=== PATIENT | male | born 1940 | race Caucasian/White ===

== ENCOUNTER → 2018-04-22 | Outpatient (CLI) | payer OTHER ==
[~2018-04-22] MED LIST: AMLO10TA8 PO; BENZ100C PO; BRIM5DRO3 EACHEYE; CARV25TA2 PO; CHLO15MO2 PO; ERGO500027 PO; FINA5TAB4 PO; GABA300C18 PO; GEMF600T8 PO; GLIP10TA13 PO; HYDR-2765 PO; LISI-130 PO; LORA1TAB PO; METF10007 PO; METO-247 PO; NYST15CR2 TP; OMEG1CAP6 PO; PENT1TAB PO; TRAZ-118 PO; VARD20TA2 PO; ZOLP10TA PO
--- NOTE | 2018-04-22 23:51 | PAIN ---
DATE OF SERVICE: 04/22/2018 INITIAL CONSULTATION FOR PAIN CLINIC CHIEF COMPLAINT: Low back pain. HISTORY OF PRESENT ILLNESS: The patient is a 77-year-old male who presents with history of pain for at least 15 years or greater by his report in the low back itself. The patient reports increases with walking, standing, change in positions, wakes him from sleep at night about 3 times a night on most nights, does not affect his bowel or bladder control, but does affect his ability to walk. He is using a brace on his right foot as well as he has some neuropathic pain by his report in the right ankle. The patient reports the pain in the back is intermittent in intensity but worse with walking, standing, change in position even sitting for prolonged periods with numbness and radiation into the lower extremities, mainly in the right foot, worse and has a stabbing pain as well in the back at times. The patient has been well controlled. He reports for over 10 years with pentazocine as well as hydrocodone and gabapentin. The patient reports that he has no significant side effects at this time with these medications, has done quite well with these over time and has been very stable on this regimen with about a 70% overall decrease in pain with the medications. The patient reports he has had previous epidural injections counseling does exercise and still does exercise and walking when he can. All of his interventional techniques have been limited in the past with the epidural injection as well as other procedures. He is not sure what was done exactly but has had multiple injections over the years in the low back. The patient rates his disability rate from 0-10, 10 being the worst, is a 6 with family and home responsibilities, 5 with recreation and social activity, 8 with sexual behavior, 2 with self-care and 3 with life support activities. PAST MEDICAL HISTORY: Significant for type 2 diabetes, cigarette smoking and arthritis. PAST SURGICAL HISTORY: Previous surgeries include cholecystectomy and hernia repair as a child and cataract extraction in 2003. CURRENT MEDICATIONS: Include pentazocine, lorazepam, Tessalon Perles, Ambien, Peridex, Alphagan, fish oil, Levitra, gabapentin, finasteride, nystatin, trazodone, hydrocodone, amlodipine, carvedilol, lisinopril, metformin, gemfibrozil, metoprolol, vitamin D and glipizide. ALLERGIES: The patient has no known drug allergies. FAMILY HISTORY: Significant for cancer in the patient's paternal grandmother and Alzheimer's disease in a brother. SOCIAL HISTORY: The patient does not drink alcohol, does smoke less than half a pack a day of cigarettes and has for many years. Does not use any illegal, illicit or recreational drugs. He is and lives with his spouse and lives locally in [place], [place]. The patient reports he is currently retired. REVIEW OF SYSTEMS: The patient's review of systems is positive for those items mentioned in history of present illness. All systems reviewed and otherwise negative. It is complete, full and well documented on the patient's chart. PHYSICAL EXAMINATION: VITAL SIGNS: Today, the patient's blood pressure is 139/70, pulse 81, respirations 18 and temperature is 98.5 degrees Fahrenheit. Height is 5 feet 11 inches and weight is 216 pounds. GENERAL: The patient is awake, alert, oriented, appropriate and very pleasant demeanor. HEENT: Head shows normocephalic and atraumatic. The patient wears eyeglasses. Extraocular movements intact and symmetrical. Oral cavity: Mucous membranes moist and pink. Dentition is intact. NECK: Shows anterior throat supple without palpable lymphadenopathy noted. Swallow reflex symmetrical. CHEST: Shows normal on inspection. Breath sounds are distant but clear to auscultation bilaterally. HEART: Shows S1 and S2 clear. No murmurs auscultated. ABDOMEN: Obese, soft, nontender and nondistended. No palpable organomegaly is noted. No rebound or guarding demonstrated. BACK: Shows spine grossly in the midline. Slight exaggeration of the thoracic kyphosis. Normal appearing cervical lordotic curvature and lumbar lordotic curvature. No previous surgical scars are noted. Lumbar paraspinous muscle shows symmetrical on inspection with palpation shows some moderate tenderness bilaterally in the upper, middle and lower distribution of the paraspinous muscles diffusely without radiation. The patient has good rotational motion of the lumbar spine, both laterally greater than 10 degrees right and left as well as extension greater than 10 degrees and forward flexion at 45 degrees without significant increase in pain reported. EXTREMITIES: The patient's lower extremities show deep tendon reflexes 1+ in the patellar and tendo-calcaneus tendons. Motor exam is strong with 5/5 dorsiflexion, extension and equal. Peripheral pulses are 1+ posterior tibial. The patient initially wearing a supportive but pivoting brace on his right ankle and lower leg. The patient is able to stand and walks with a slight shuffling gait, does appear to favor his right lower extremity to a moderate extend but is not using any assistive device such as canes or walkers to ambulate on this visit today. SKIN: Shows warm and dry, good turgor. No edema. No sores, rashes or bruising. IMPRESSION: 1. This is a 77-year-old male with chronic low back pain, history of degenerative disk disease with only limited improvement from previous interventional techniques, however, well controlled with current pentazocine and hydrocodone combination without significant side effects. 2. Type 2 diabetes. 3. Arthritis. 4. Obesity. PLAN: Options were discussed with the patient including conservative management, physical therapies, interventional techniques and he has had poor results with interventional techniques in the past and is doing very well with his 10-year plus current medication management regimen. I informed him that we would not be taking over his medications as it is the policy of our clinic since 2016; however, recommend that he maintain the current medications of pentazocine and hydrocodone at the current doses as he does very well with these by his report without significant side effects. I feel it is very appropriate for the patient to be on these doses as currently prescribed and we would recommend a routine drug screening routinely as well as narcotic contract agreement with his prescribing physician and will be available for reconsultation if pain levels are not controlled, oral medication begins to cause side effects, etc. for further review as the patient may need. TROY BLANCO MD DR: VICK/nts JOB#: [id number] / [id number] BRII Lainez DO
== END | disposition home or self-care (01) ==
LOC: PNCL 12:43
PROVIDERS: ATTEND Anesthesiology
DX: M54.5 Low back pain (principal); M19.90 Unspecified osteoarthritis, unspecified site; E11.9 Type 2 diabetes mellitus without complications; E66.9 Obesity, unspecified; F17.210 Nicotine dependence, cigarettes, uncomplicated; Z79.899 Other long term (current) drug therapy; Z90.49 Acquired absence of other specified parts of digestive tract
CPT/HCPCS: G0463